=== PATIENT | female | born 1990 | race Caucasian/White ===

== ENCOUNTER 2019-06-16 16:50 | Emergency (ER) | payer OTHER, MEDICAID, SELFPAY ==
[2019-06-16 16:58] VITALS: BP 110/72; PULSE 79; RESP 16; TEMP 36.9; O2SAT 100
[2019-06-16 17:27] LABS: Bacteria Urine Few (2-10); Culture Indicated Urine Specimen Cultured; Mucus Urine 2+ (Negative); RBC Urine 30-100/HPF (0-5/HPF); Squamous Epithelial Cell Urine 0-1 /HPF (0-5/HPF); WBC Urine 5-10/HPF (0-5/HPF)
[2019-06-16 17:30] LABS: Add Manual Diff / Slide Review NO; Basophils Absolute Auto 0 /uL (0-100); Basophils Percent Auto 0.2 % (0-2); Eosinophils Absolute Auto 100 /uL (0-450); Eosinophils Percent Auto 0.5 % (2-4); Hematocrit 35.8 % (36-46); Hemoglobin 12.4 g/dL (12.0-16.0); Lymphocytes Absolute Auto 1600 /uL (1100-4500); Lymphocytes Percent Auto 16.2 % (25-40); Mean Corpuscular HGB Conc 34.5 % (30-36); Mean Corpuscular Volume 95.8 fL (80-100); Monocytes Absolute Auto 600 /uL (0-900); Monocytes Percent Auto 5.8 % (3-14); Neutrophils Absolute Auto 7700 /uL (1500-7000); Neutrophils Percent Auto 77.3 % (50-75); Platelet Count 203 X10^3/uL (150-400); Red Blood Cell Count 3.74 X10^6/uL (4.0-5.2); Red Cell Distribution Width 12.6 % (11.6-14.8)
[2019-06-16 17:38] LABS: Alanine Aminotransferase 36 IU/L (9-52); Albumin 4.4 g/dL (3.5-5.0); Albumin Globulin Ratio 1.4 (1.0-2.8); Alkaline Phosphatase 45 U/L (38-126); Aspartate Aminotransferase 35 IU/L (14-36); Bilirubin Total 0.6 mg/dL (0.2-1.3); Blood Urea Nitrogen 4 mg/dL (7-17); Calcium 10.1 mg/dL (8.4-10.2); Carbon Dioxide 25 mmol/L (22-32); Chloride 102 mmol/L (98-107); Estimated Glomerular Filt Rate > 60.0 mL/min (>60); Globulin 3.1 g/dL (1.7-4.1); Glucose 88 mg/dL (70-100); HEMOLYSIS < 15 (0-50); Potassium 3.5 mmol/L (3.4-5.1); Sodium 136 mmol/L (137-145); Total Protein 7.5 g/dL (6.3-8.2)
--- NOTE | 2019-06-16 17:53 | DI.US.S_ITS ---
PROCEDURE: US OB >= 14 WEEKS FETUS INDICATIONS: POSSIBLE 8 WKS PREG W/BLEEDING AND CRAMPING OUTSIDE/PRIOR DATING DATA: Last menstrual period (LMP): Unknown. LMP-based estimated date of delivery (ELMER): N./A. First dating scan (date and location): 06/16/19. Estimated date of delivery (ELMER) from first dating scan: 12/03/19. TECHNIQUE: Real-time scanning was performed of the fetus, with image documentation and biometric measurements. COMPARISON: None. FINDINGS: General: A single live intrauterine gestation is present. Presentation: Variable. Placenta: Placental position is fundal, without previa. Amniotic fluid index: Not measured. However, there is severe oligohydramnios. heart rate: 153 beats per minute. Maternal cervical canal: Not seen. biometrics: Biparietal diameter: 3.1 cm equals 15 weeks 5 days Head circumference: 11.9 cm equals 15 weeks 6 days Abdominal circumference: 9.7 cm equals 15 weeks 5 days Femur length: 1.9 cm equals 15 weeks 4 days Estimated gestational age from initial scan: not applicable. Composite gestational age from present scan: 15 weeks 5 days Estimated weight and percentile: Not calculated Measurement variability for biometric dating: +/- 7 days from 14 weeks to 15 weeks 6 days gestation, +/- 10 days from 16 weeks to 21 weeks 6 days gestation, +/- 2 weeks from 22 weeks to 27 weeks 6 days gestation, +/- 3 weeks for 28 weeks gestation or later. weight reference: 4500 g or EFW >90/95% is considered macrosomia or large for gestational age. EFW <10% is small for gestational age. EFW 5% or less is considered intra-uterine growth restriction. Anatomic survey: Anatomic survey was not performed. Multiple uterine fibroids are seen. The which measure up to 2.7 centimeters. IMPRESSION: A single live intrauterine is seen. There is severe oligohydramnios. Note: Case discussed by telephone with Dr. Earl at 7:23 PM on June 16, 2019, who will discuss the case with the JEWELRY ENAMELER waste minimization technician. Dictated by: Ramsey Stroud M.D. on 06/16/2019 at 19:18 Approved by: Ramsey Stroud M.D. on 06/16/2019 at 19:31
[2019-06-16 18:20] LABS: HCG Quantitative /Beta subunit 13937 mIU/mL
--- NOTE | 2019-06-16 18:54 | ED_ITS ---
HPI - General Adult General Chief complaint: OB/Uterine Contractions Stated complaint: NOT SURE HOW FAR BLEEDING HEAVY Time Seen by Provider: 06/16/19 18:53 Source: patient Mode of arrival: Ambulatory Limitations: no limitations History of Present Illness HPI narrative: Patient is a 28-year-old otherwise healthy female. She states this pregnancies either her 5th or 6th . She has no children at home. She has no care up to this point with this . She states that her last menstrual cycle was 2 months ago she feels that she is somewhere around 2 months gestational age. Has had 2 prior elective abortions. First 1 being instrumentation with another 1 being a medical. It the other pregnancies have ended in a spontaneous abortions. States this has been uncomplicated up to this point. States that today she was sitting on the couch when she had a sudden loss of fluid. She states that it was like a very large urination however was coming from her vagina. She then started having cramping and ?a lot? of vaginal bleeding. She states that currently the bleeding has improved/resolved however she is still having cramping. Related Data Previous Rx's Medication Instructions Recorded amoxicillin-pot clavulanate 1 tab PO BID #14 tab 06/16/19 [Augmentin] Allergies Allergy/AdvReac Type Severity Reaction Status Date / Time tramadol Allergy Rash Verified 06/16/19 16:57 Review of Systems Constitutional Constitutional: Denies fever(s) and Denies headache(s) ENT Ears, Nose, Mouth, and Throat: Denies headache(s) Cardiovascular Cardiovascular: Denies chest pain and Denies dyspnea Respiratory Respiratory: Denies dyspnea Gastrointestinal Gastrointestinal: Denies change in stool character, Reports cramping, Denies diarrhea, Denies nausea and Denies vomiting Comments: Abdominal cramping Genitourinary Genitourinary: Denies dysuria Comments: Vaginal bleeding with loss of fluid Musculoskeletal Musculoskeletal: Denies myalgias and Denies arthralgias Integumentary/Breasts Skin/Breast: Denies lesions and Denies rash Neurologic Neurologic: Denies behavioral changes and Denies headache(s) Psychiatric Psychiatric: Denies behavioral changes Hematologic/Lymphatic Hematologic/Lymphatic: Denies easy bleeding and Denies easy bruising [facility] Medical History [place] teeth extracted (Acute) Surgical History (Updated 06/16/19 @ 21:49 by Chari Reyna MD) H/O dilation and curettage (Acute) Social History Smoking Status: Current every day smoker Social History Smoking Status: Current every day smoker Exam Initial Vital Signs Initial Vital Signs: Vital Signs Temperature 98.5 F 06/16/19 16:58 Pulse Rate 79 06/16/19 16:58 Respiratory Rate 16 06/16/19 16:58 Blood Pressure 110/72 06/16/19 16:58 Pulse Oximetry 100 06/16/19 16:58 Const General: cooperative, well developed and well groomed Orientation: alert, awake and oriented x3 HENMT Head: normal to inspection and normocephalic Resp Effort & Inspection: normal respiratory effort Cardio Rate: regular rate GI Inspection: non-distended Palpation: soft Skin Lesions: no lesions Rashes: no rashes Neuro General: alert and awake Cognition: normal cognition Speech: speech normal Extrem General: normal to inspection and capillary refill normal Psych Appearance: grossly normal and well kempt Course Orders Ordered: ED Orders 06/16/19 17:13 ABO RH Type Stat Complete Blood Count AUTO DIFF Stat Comprehensive Metabolic Panel Stat HCG Quantitative Stat 06/16/19 17:20 Urine Culture Stat Urine Microscopic Stat 06/16/19 17:53 US OB >= 14 weeks Fetus Stat Vital Signs Vital signs: Vital Signs - 8 hr 06/16/19 16:58 06/16/19 19:28 06/16/19 19:56 Temperature 98.5 F Pulse Rate 79 92 H 88 Respiratory Rate 16 18 14 Blood Pressure 110/72 121/72 Blood Pressure [Right Arm] 118/78 Pulse Oximetry 100 100 100 Medical Decision Making Lab Data Lab results reviewed: Yes I reviewed the patient's lab results. Result diagrams: 06/16/19 17:13 06/16/19 17:13 Labs: Lab Results 06/16/19 06/16/19 06/16/19 Range/Units 17:13 17:13 17:13 WBC 10.0 (4.5-11.0) X10^3/uL RBC 3.74 L (4.0-5.2) X10^6/uL Hgb 12.4 (12.0-16.0) g/dL Hct 35.8 L (36-46) % MCV 95.8 (80-100) fL MCH 33.0 (26-34) PG MCHC 34.5 (30-36) % RDW 12.6 (11.6-14.8) % Plt Count 203 (150-400) X10^3/uL Neut % (Auto) 77.3 H (50-75) % Lymph % (Auto) 16.2 L (25-40) % [place] % (Auto) 5.8 (3-14) % Eos % (Auto) 0.5 L (2-4) % Baso % (Auto) 0.2 (0-2) % Neut # (Auto) 7700 H (2639-5041) /uL Lymph # (Auto) 1600 (7310-9352) /uL [place] # (Auto) 600 (0-900) /uL Eos # (Auto) 100 (0-450) /uL Baso # (Auto) 0 (0-100) /uL Sodium 136 L (137-145) mmol/L Potassium 3.5 (3.4-5.1) mmol/L Chloride 102 (98-107) mmol/L Carbon Dioxide 25 (22-32) mmol/L BUN 4 L (7-17) mg/dL Creatinine 0.50 L (0.52-1.04) mg/dL Estimated GFR > 60.0 (>60) mL/min BUN/Creatinine Ratio 8.0 (6-22) Glucose 88 (70-100) mg/dL Calcium 10.1 (8.4-10.2) mg/dL Total Bilirubin 0.6 (0.2-1.3) mg/dL AST 35 (14-36) IU/L ALT 36 (9-52) IU/L Alkaline Phosphatase 45 (38-126) U/L Total Protein 7.5 (6.3-8.2) g/dL Albumin 4.4 (3.5-5.0) g/dL Globulin 3.1 (1.7-4.1) g/dL Albumin/Globulin Ratio 1.4 (1.0-2.8) HCG, Quant 47613 mIU/mL Urine RBC (0-5/HPF) Urine WBC (0-5/HPF) Ur Squamous Epith Cells (0-5/HPF) Urine Bacteria (None) Urine Mucus (Negative) Ur Culture Indicated? Blood Type O Positive 06/16/19 Range/Units 17:20 WBC (4.5-11.0) X10^3/uL RBC (4.0-5.2) X10^6/uL Hgb (12.0-16.0) g/dL Hct (36-46) % MCV (80-100) fL MCH (26-34) PG MCHC (30-36) % RDW (11.6-14.8) % Plt Count (150-400) X10^3/uL Neut % (Auto) (50-75) % Lymph % (Auto) (25-40) % [place] % (Auto) (3-14) % Eos % (Auto) (2-4) % Baso % (Auto) (0-2) % Neut # (Auto) (8158-8664) /uL Lymph # (Auto) (8884-4197) /uL [place] # (Auto) (0-900) /uL Eos # (Auto) (0-450) /uL Baso # (Auto) (0-100) /uL Sodium (137-145) mmol/L Potassium (3.4-5.1) mmol/L Chloride (98-107) mmol/L Carbon Dioxide (22-32) mmol/L BUN (7-17) mg/dL Creatinine (0.52-1.04) mg/dL Estimated GFR (>60) mL/min BUN/Creatinine Ratio (6-22) Glucose (70-100) mg/dL Calcium (8.4-10.2) mg/dL Total Bilirubin (0.2-1.3) mg/dL AST (14-36) IU/L ALT (9-52) IU/L Alkaline Phosphatase (38-126) U/L Total Protein (6.3-8.2) g/dL Albumin (3.5-5.0) g/dL Globulin (1.7-4.1) g/dL Albumin/Globulin Ratio (1.0-2.8) HCG, Quant mIU/mL Urine RBC 30-100/hpf H (0-5/HPF) Urine WBC 5-10/hpf H (0-5/HPF) Ur Squamous Epith Cells 0-1 /hpf (0-5/HPF) Urine Bacteria Few (2-10) H (None) Urine Mucus 2+ H (Negative) Ur Culture Indicated? Specimen cultured Blood Type Urine Dip Bedside Urine Glucose Negative Bedside Urine Bilirubin + 1 Bedside Urine Ketone ++ 40 Urine Specific [place] 1.025 Bedside Urine Occult Blood +++ Bedside Urine pH 6.0 Bedside Urine Protein + 30 Bedside Urine Urobilinogen +/- 1mg Bedside Urine Nitrite + Positive Bedside Urine Leukocytes + 70 Esterase Point of care testing: Urine Dip Bedside Urine Glucose Negative Bedside Urine Bilirubin + 1 Bedside Urine Ketone ++ 40 Urine Specific [place] 1.025 Bedside Urine Occult Blood +++ Bedside Urine pH 6.0 Bedside Urine Protein + 30 Bedside Urine Urobilinogen +/- 1mg Bedside Urine Nitrite + Positive Bedside Urine Leukocytes + 70 Esterase Imaging Data US - abdomen: Radiologist's impression: [address] [address] Ultrasound Report Signed Patient: Michelle Herbert MMR#: [id number] : 1990Acct:[id number] Age/Sex: 28 / FDate of Service: 06/16/19 Loc: ED Accession Number: [id number] Procedure: US OB >= 14 weeks Fetus Ordering Provider: Harshil Earl D.O. PROCEDURE: US OB >= 14 WEEKS FETUS INDICATIONS: POSSIBLE 8 WKS PREG W/BLEEDING AND CRAMPING OUTSIDE/PRIOR DATING DATA: Last menstrual period (LMP): Unknown. LMP-based estimated date of delivery (ELMER): N./A. First dating scan (date and location): 06/16/19. Estimated date of delivery (ELMER) from first dating scan: 12/03/19. TECHNIQUE: Real-time scanning was performed of the fetus, with image documentation and biometric measurements. COMPARISON: None. FINDINGS: General: A single live intrauterine gestation is present. Presentation: Variable. Placenta: Placental position is fundal, without previa. Amniotic fluid index: Not measured. However, there is severe oligohydramnios. heart rate: 153 beats per minute. Maternal cervical canal: Not seen. biometrics: Biparietal diameter: 3.1 cm equals 15 weeks 5 days Head circumference: 11.9 cm equals 15 weeks 6 days Abdominal circumference: 9.7 cm equals 15 weeks 5 days Femur length: 1.9 cm equals 15 weeks 4 days Estimated gestational age from initial scan: not applicable. Composite gestational age from present scan: 15 weeks 5 days Estimated weight and percentile: Not calculated Measurement variability for biometric dating: +/- 7 days from 14 weeks to 15 weeks 6 days gestation, +/- 10 days from 16 weeks to 21 weeks 6 days gestation, +/- 2 weeks from 22 weeks to 27 weeks 6 days gestation, +/- 3 weeks for 28 weeks gestation or later. weight reference: 4500 g or EFW >90/95% is considered macrosomia or large for gestational age. EFW <10% is small for gestational age. EFW 5% or less is considered intra-uterine growth restriction. Anatomic survey: Anatomic survey was not performed. Multiple uterine fibroids are seen. The which measure up to 2.7 centimeters. IMPRESSION: A single live intrauterine is seen. There is severe oligohydramnios. Note: Case discussed by telephone with Dr. Earl at 7:23 PM on June 16, 2019, who will discuss the case with the BIOLOGICAL PLANT OPERATOR production controller. Dictated by: Ramsey Stroud M.D. on 06/16/2019 at 19:18 Approved by: Ramsey Stroud M.D. on 06/16/2019 at 19:31 MDM Narrative Medical decision making narrative: Rh positive. Ultrasound does show single live intrauterine however with oligohydramnios. Given the patient's history and physical exam hours concern for premature rupture of membranes. I did discuss the case with Dr. Reyna with tin tie machine operator automatic who recommended that we send the patient to the labor and delivery department. I did discuss the ultrasound results with the patient and what our concerns were. She is currently stable. She was discharged from the emergency department and sent to L&D. Discharge Plan Departure Patient Disposition: Home Clinical Impression: Threatened miscarriage Discharge Date/Time: 06/16/19 19:57 Instructions: DI for Threatened Activity Restrictions/Additional Instructions: I spoke with Dr Reyna who is our OB provider production controller who recommended that we send you over to the L&D department for further evaluation. Prescriptions: No Action amoxicillin-pot clavulanate [Augmentin] 875-125 mg tablet 1 tab PO BID Qty: 14 RF: 0
[2019-06-16 19:28] VITALS: BP 118/78; PULSE 92; RESP 18; O2SAT 100
--- NOTE | 2019-06-16 19:54 | PC.NURSE ---
Per THO, pt to go to LnD for treatment under Dr. You. No further treatment provided in ED. IV to be placed in LnD.
[2019-06-16 19:56] VITALS: BP 121/72; PULSE 88; RESP 14; O2SAT 100
== END 2019-06-16 19:57 | disposition home or self-care (01) ==
PROVIDERS: Emergency Medicine; Emergency Provider Emergency Medicine
DX: O20.0 Threatened abortion (principal)
CPT/HCPCS: 36415; 76811; 80053; 81003; 81015; 84702; 85025; 86850; 86900; 86901; 87086; 99283; 99284; G0378; G0379

== ENCOUNTER 2019-06-16 19:59 | Observation (INO) | payer OTHER, MEDICAID, SELFPAY ==
--- NOTE | 2019-06-16 21:47 | PM.OBTRLD ---
Visit Information Visit Information Date of evaluation: 06/16/19 On-call OB Provider: Chari Reyna Reason for Evaluation: Yes rupture of membranes Comments/Additional reasons for admission: 16 weeks gestation [facility] Medical History (Updated 06/16/19 @ 21:49 by Chari Reyna MD) [place] teeth extracted (Acute) Surgical History (Updated 06/16/19 @ 21:49 by Chari Reyna MD) H/O dilation and curettage (Acute) Social History Smoking Status: Current every day smoker Social History Smoking Status: Current every day smoker Review of Systems Review of Systems ROS Unobtainable: All systems reviewed & are unremarkable except as noted in HPI and below Constitutional Constitutional: Denies chills, Denies fever(s) and Denies night sweats Genitourinary Genitourinary: Denies vaginal odor Diagnosis, Plan/Disposition Final Diagnosis (1) H/O dilation and curettage: Current Visit: Yes Status: Acute
[2019-06-16] MEDS: AMOXICILLIN/CLAV 875/125 MG 1 TAB PO (22:23)
== END 2019-06-16 23:01 | disposition home or self-care (01) ==
PROVIDERS: Admitting Provider Obstetrics & Gynecology; Visit Provider Obstetrics & Gynecology
DX: O20.0 Threatened abortion (principal)
CPT/HCPCS: 86850; 86900; 86901; G0378; G0379

== ENCOUNTER 2019-06-17 09:08 | Emergency (ER) | payer OTHER, MEDICAID, SELFPAY ==
[2019-06-17 09:00] VITALS: BP 108/77; PULSE 106; RESP 20; O2SAT 98
[2019-06-17 09:01] VITALS: BP 116/79; PULSE 85; RESP 18; TEMP 37.1; O2SAT 98; BMI 23.3
--- NOTE | 2019-06-17 09:11 | ED.PREGNANCY ---
HPI - General Chief complaint: OB/Uterine Contractions Stated complaint: stillbirth Time Seen by Provider: 06/17/19 09:11 Source: patient and EMS Mode of arrival: EMS History of Present Illness HPI Narrative: 28-year-old female smoker G5 (or 6) P0 at 15 weeks presents by EMS after stillbirth at home. There has been intense contractions and heavy bleeding, baby still attached to umbilical cord and placenta is yet on delivered. Patient has nausea, pain as a bit dizzy and lightheaded. Patient was seen here yesterday and had an ultrasound showing severe oligohydramnios and was sent to labor and delivery, please see their note for details. She was discharged home, apparently against the wishes of Ob and returns under the above-stated conditions. She has been NPO since yesterday morning except for some water last evening. She denies any fever or chills. MD Complaint: vaginal bleeding and contractions Onset (ago): hour(s) Pain Consistency: intermittent Location: pelvis Severity: moderate Quality: Aching Radiation: pelvis Relieving factors: none Exacerbating factors: none Associated symptoms: nausea and vaginal bleeding Vaginal bleeding: heavy and clots OB History - Previous Pregnancies: miscarriage care: none Related Data Previous Rx's Medication Instructions Recorded amoxicillin-pot clavulanate 1 tab PO BID #14 tab 06/16/19 [Augmentin] Allergies Allergy/AdvReac Type Severity Reaction Status Date / Time tramadol Allergy Rash Verified 06/16/19 16:57 Review of Systems Constitutional Constitutional: Denies chills, Denies fatigue, Denies fever(s), Denies frequent falls, Denies lethargy and Denies weakness Eyes Eyes: Denies change in vision, Denies eye discharge, Denies irritation and Denies loss of vision ENT Ears, Nose, Mouth, and Throat: Denies change in voice, Denies dizziness, Denies neck pain, Denies sore throat and Denies throat swelling Cardiovascular Cardiovascular: Denies chest pain, Denies irregular heart rhythm, Denies lightheadedness, Denies palpitations, Denies dyspnea, Denies dyspnea on exertion and Denies orthopnea Respiratory Respiratory: Denies cough, Denies dyspnea, Denies dyspnea on exertion and Denies wheezing Gastrointestinal Gastrointestinal: Denies abdominal pain, Denies change in bowel habits, Denies diarrhea, Denies nausea and Denies vomiting Genitourinary Genitourinary: Reports abnormal vaginal bleeding, Denies hematuria, Denies flank pain, Denies urinary incontinence and Denies urinary urgency Musculoskeletal Musculoskeletal: Denies back pain, Denies muscle weakness, Denies neck pain, Denies numbness and Denies tingling Integumentary/Breasts Skin/Breast: Denies pruritus, Denies erythema, Denies rash and Denies wounds Neurologic Neurologic: Denies behavioral changes, Denies confusion, Denies dizziness, Denies frequent falls, Denies loss of vision, Denies numbness, Denies tingling and Denies weakness Psychiatric Psychiatric: Denies anxiety, Denies behavioral changes, Denies confusion, Denies depression, Denies homicidal ideation and Denies suicidal ideation Endocrine Endocrine: Denies fatigue, Denies flushing and Denies palpitations Hematologic/Lymphatic Hematologic/Lymphatic: Denies easy bruising Allergic/Immunologic Allergic/Immunologic: Denies urticaria, Denies throat swelling and Denies wheezing PMFSH - Past Medical History Medical history: Reports no medical history Surgical history: Reports non-contributory DEEP FAT COOK FRY history: Reports Spontaneous Psychiatric history: Reports no psych history Family History Family history: Reports no significant family history Exam Narrative Exam Narrative: GEN: AOx3 and in mild distress, tearful and unwell EYES: Pupils are equal, round, and reactive to light and accommodation. Extraoccular muscles are intact bilaterally. There is no subconjunctival hemorrhage or exudate. CHEST: Lungs are clear to auscultation bilaterally and free of wheezes, rales, or rhonchi. Heart rate is regular rhythm, there are no murmurs, clicks, rubs, or gallops. There is no chest wall tenderness. ABD: Abdomen is soft and suprapubic tenderness. There is no guarding or rebound. Bowel sounds are normal in all 4 quadrants. There is no mass or organomegaly. PELVIC: fetus attached to umbilical cord, placenta still intrauterine. Large dark clots, but no obvious active bleeding. EXT: Full painless ROM of all extremities with no loss of sensation or strength. SKIN: Warm, pink, and dry. No erythema or rash Initial Vital Signs Initial Vital Signs: Vital Signs Pulse Rate 106 H 06/17/19 09:00 Respiratory Rate 20 06/17/19 09:00 Blood Pressure 108/77 06/17/19 09:00 Pulse Oximetry 98 06/17/19 09:00 Course Course Course Narrative: call to OB (Maribell), she requests patient be kept NPO and sent to L&D. No need to call OR crew just yet, she is on her way and will see patient. Orders Ordered: ED Orders 06/17/19 09:13 Basic Metabolic Panel Stat Complete Blood Count AUTO DIFF Stat HCG Quantitative Stat Type and Screen Stat Discontinued Medications Famotidine (Pepcid) 20 mg in 50 mls @ 200 mls/hr IV NOW ONE Stop: 06/17/19 09:21 Metoclopramide HCl (Reglan) 10 mg IV NOW ONE Stop: 06/17/19 09:08 Vital Signs Vital signs: Vital Signs - 8 hr 06/17/19 09:00 06/17/19 09:01 Temperature 98.7 F Pulse Rate 106 H 85 Respiratory Rate 20 18 Blood Pressure 116/79 Blood Pressure [Right Arm] 108/77 Pulse Oximetry 98 98 MDM - OB/Uterine Contractions Lab Data Result diagrams: 06/17/19 09:13 06/17/19 09:13 Labs: Lab Results 06/17/19 06/17/19 06/17/19 Range/Units 09:13 09:13 09:13 WBC 14.2 H (4.5-11.0) X10^3/uL RBC 3.18 L (4.0-5.2) X10^6/uL Hgb 10.5 L (12.0-16.0) g/dL Hct 29.8 L (36-46) % MCV 93.6 (80-100) fL MCH 33.0 (26-34) PG MCHC 35.2 (30-36) % RDW 12.3 (11.6-14.8) % Plt Count 151 (150-400) X10^3/uL Neut % (Auto) 87.5 H (50-75) % Lymph % (Auto) 6.7 L (25-40) % [place] % (Auto) 5.3 (3-14) % Eos % (Auto) 0.4 L (2-4) % Baso % (Auto) 0.1 (0-2) % Neut # (Auto) 21783 H (7006-0106) /uL Lymph # (Auto) 1000 L (1502-1724) /uL [place] # (Auto) 800 (0-900) /uL Eos # (Auto) 100 (0-450) /uL Baso # (Auto) 0 (0-100) /uL Sodium 135 L (137-145) mmol/L Potassium 3.6 (3.4-5.1) mmol/L Chloride 105 (98-107) mmol/L Carbon Dioxide 19 L (22-32) mmol/L BUN 4 L (7-17) mg/dL Creatinine 0.40 L (0.52-1.04) mg/dL Estimated GFR > 60.0 (>60) mL/min BUN/Creatinine Ratio 10.0 (6-22) Glucose 109 H (70-100) mg/dL Calcium 9.4 (8.4-10.2) mg/dL HCG, Quant 8664.4 mIU/mL Blood Type O Positive Antibody Screen Negative Discharge Plan Departure Patient Disposition: Admitted as Observation Clinical Impression: Abnormal vaginal bleeding, Incomplete miscarriage with blood clot Discharge Date/Time: 06/17/19 09:38
[2019-06-17 09:33] LABS: Add Manual Diff / Slide Review NO; Basophils Absolute Auto 0 /uL (0-100); Basophils Percent Auto 0.1 % (0-2); Eosinophils Absolute Auto 100 /uL (0-450); Eosinophils Percent Auto 0.4 % (2-4); Hematocrit 29.8 % (36-46); Hemoglobin 10.5 g/dL (12.0-16.0); Lymphocytes Absolute Auto 1000 /uL (1100-4500); Lymphocytes Percent Auto 6.7 % (25-40); Mean Corpuscular HGB Conc 35.2 % (30-36); Mean Corpuscular Volume 93.6 fL (80-100); Monocytes Absolute Auto 800 /uL (0-900); Monocytes Percent Auto 5.3 % (3-14); Neutrophils Absolute Auto 12400 /uL (1500-7000); Neutrophils Percent Auto 87.5 % (50-75); Platelet Count 151 X10^3/uL (150-400); Red Blood Cell Count 3.18 X10^6/uL (4.0-5.2); Red Cell Distribution Width 12.3 % (11.6-14.8); White Blood Cell Count 14.2 X10^3/uL (4.5-11.0)
--- NOTE | 2019-06-17 09:34 | PC.NURSE ---
pt states, she was told, amoxcillin was given last night, not cytotec. that she wasnt aware of cytotec, she is supposed to have D&E. states, she broke her water yesterday at 230pm, seen and evaluated yesterday by dr car and Dr Reyna. then with severe abdominal cramping and vaginal bleeding onset at 430 am today, then at 0730, went to the bathroom, still in the toilet, called er, wondering if she can just cut the cord, advised to call 911 for transport to the hospital.
[2019-06-17 09:38] LABS: Blood Urea Nitrogen 4 mg/dL (7-17); Calcium 9.4 mg/dL (8.4-10.2); Carbon Dioxide 19 mmol/L (22-32); Chloride 105 mmol/L (98-107); Estimated Glomerular Filt Rate > 60.0 mL/min (>60); Glucose 109 mg/dL (70-100); HEMOLYSIS < 15 (0-50); Potassium 3.6 mmol/L (3.4-5.1); Sodium 135 mmol/L (137-145)
[2019-06-17 09:55] LABS: HCG Quantitative /Beta subunit 8664.4 mIU/mL
== END 2019-06-17 09:38 | disposition admitted as inpatient to this hospital (09) ==
LOC: ED 09:26
PROVIDERS: Emergency Provider Emergency Medicine
DX: O03.2 Embolism following incomplete spontaneous abortion (principal)
CPT/HCPCS: 36415; 80048; 84702; 85025; 86850; 86900; 86901; 99282; J0330; J1100; J1885; J2250; J2590; J2704; J3010

== ENCOUNTER 2019-06-17 09:24 | Observation (INO) | payer OTHER, MEDICAID, SELFPAY ==
[2019-06-17] VITALS (11 sets, daily range): BP systolic 92–113; BP diastolic 45–76; PULSE 65–86; RESP 10–24; TEMP 36.2–36.6; O2SAT 99–100
--- NOTE | 2019-06-17 | PATH_ITS ---
[facility] Accession Number: [id number] . 01 Material submitted: . placenta - RETAINED PLACENTA . 02 Diagnosis: Retained Placenta: Phenotypically male fetus (weight 103 grams, 15-16 weeks gestational age as measured by foot length of 2.0 cm). External small and large intestine at gross examination; otherwise, no grossly identifiable abnormalities. Umbilical cord (length 21.5 cm) with three vessels and no evidence of funisitis. Placental tissue fragments (weight 120 grams) with moderate inter- and intravillous fibrin, and with immature chorionic villi. There is no definite evidence of villitis. Chorioamnionitis is present. MRV 06/22/2019 1637 Local . 02 Electronically signed: . Sharon Agarwal MD, Pathologist NPI- [id number] . 01 Gross description: . Received in formalin, labeled retained placenta, are multiple fragments of del castillo-eason spongy membranous hemorrhagic tissue (120 grams, 11.5 x 10.5 x 2.8 cm in aggregate) and an intact phenotypically male fetus weighing 103 grams. The fetus is brown-del castillo and diffusely edematous. The abdomen contains an opening with the small and large intestines developing outside of the body. External examination: Two eyes with fused lids, small anteverted nose with patent nares, intact lip and palate, slightly recessed chin, normally formed ears, no nuchal thickening, no obvious nipple buds, intact vertebral column, five digits on all four extremities with no syndactyly or abnormal creases, and a patent anus. . Gross measurements: [place] to rump length-12.6 cm, crown to heel length-17.8 cm, foot length-2.0 cm, hand length-1.8 cm, head circumference-11.5 cm, chest circumference-10.3 cm, abdominal circumference-7.7 cm, inner canthal distance-1.3 cm, outer canthal distance-2.8 cm, and attached umbilical cord: length-21.5 cm, diameter-0.5 x 0.3 cm. The umbilical cord appears to have two vessels. . Internal examination: The organs appear to be developing normally. The calvarial bones are not disarticultated. No other pathological abnormalities are identified. Section code: (A1) vendor representatives tissue; (A2) umbilical cord, vendor representatives serial sections; (A3, A4) vendor representatives tissue fragments. ([id number]) /MRV 06/21/2019 1354 Local . 02 Pathologist provided ICD-10: O43.90, O73.1 . 02 CPT . 745370 Performed at: 01 [facility] [address] [id number] MD Behzad Carnes MD Phone: [phone] Performed at: 02 [facility] [address] [place] [id number] MD Annette Duran MD Phone: [phone]
--- NOTE | 2019-06-17 10:10 | PM.PREOP ---
Pre-operative Note Interval Note History & Physical reviewed/Exam performed by Physician: Yes Changes to H&P: No
[2019-06-17] MEDS: ONDANSETRON 4 MG/2 ML INJ IV (10:17)
[2019-06-17] MEDS: fentaNYL 100 MCG/2 ML INJ 50 MCG IV ×2 (10:17→11:10)
[2019-06-17] MEDS: LACTATED RINGERS 1,000 ML 42 ML IV (10:17)
[2019-06-17] MEDS: CEFOTETAN 2 GM/50 ML PIGGYBACK IV (10:30)
--- NOTE | 2019-06-17 11:11 | SUR.OPER ---
Lithotomy on padded OR bed, head on pillow, arms secured on padded arm boards at <90 degrees abduction. Legs secured in padded yellow fins stirrups. Lithotomy on padded OR bed, head on pillow, arms secured on padded arm boards at <90 degrees abduction. Legs secured in padded yellow fins stirrups.
[2019-06-17] MEDS: OXYCODONE/ACETAMINOPHEN 5/325 TABLET 1 TAB PO (11:20)
[2019-06-17] MEDS: OXYCODONE/ACETAMINOPHEN 5/325 TABLET 2 TAB PO (12:34)
--- NOTE | 2019-06-17 12:38 | PC.NURSE ---
Day shift: Pt on unit at approx 1215 from PACU. A&Ox3. Reports ABD pain of 2/10. Oriented to room and call light. SO at bedside for support. PERSONAL HEALTH COACH intact. Pad in place. Pt agrees to not get OOB w/o help from staff.
--- NOTE | 2019-06-17 13:15 | P.HP_ITS ---
History of Present Illness History of Present Illness Date Patient Seen: 06/17/19 Time Patient Seen: 10:00 Chief complaint: Narrative: Patient is a 28-year-old 6 para 0 who passed a fetus measuring 16 weeks at 4:30 a.m. this morning. The fetus remains attached by the umbilical cord to the placenta. The placenta remains in the uterus. Patient presented last night to the emergency department after spontaneous rupture membranes at 2:30 p.m. yesterday afternoon. She refused Cytotec induction of labor. She was given 1 dose of oral antibiotics and was to follow up today either at the [facility] or at [facility] for a D&E. The patient began having cramping in the middle of the night and passed the fetus while sitting on the toilet. Patient History Surgical History (Updated 06/16/19 @ 21:49 by Chari Reyna MD) H/O dilation and curettage (Acute) Social History Smoking Status: Current every day smoker Family & Social History Tobacco & Substance use: Tobacco type cigarettes Smoking Status Current every day smoker Smoking packs per day 0.5 alcohol intake frequency 3 or more drinks per day Substance Use Type does not use Meds Home Medications and Allergies Home Medications Medication Instructions Recorded Confirmed Type amoxicillin-pot clavulanate 1 tab PO BID #14 tab 06/16/19 Rx [Augmentin] oxycodone-acetaminophen [Percocet] 1 tab PO Q4-6H PRN #14 tab 06/17/19 Rx Allergies Allergy/AdvReac Type Severity Reaction Status Date / Time tramadol Allergy Rash Verified 06/16/19 16:57 Exam Vital Signs (past 8 hours): - 06/17/19 10:17 06/17/19 11:03 06/17/19 11:08 Temperature 97.2 F L Pulse Rate 84 78 81 Respiratory Rate 24 12 13 Blood Pressure 113/76 112/70 107/65 Pulse Oximetry 99 100 100 06/17/19 11:13 06/17/19 11:20 06/17/19 11:30 Temperature Pulse Rate 85 83 86 Respiratory Rate 12 10 L 14 Blood Pressure 102/70 92/47 L 95/61 Pulse Oximetry 100 100 100 06/17/19 11:40 06/17/19 12:02 06/17/19 12:23 Temperature 97.8 F Pulse Rate 83 65 Respiratory Rate 14 16 Blood Pressure 107/71 97/45 L 97/45 L Pulse Oximetry 100 100 06/17/19 12:30 Temperature 97.9 F Pulse Rate 74 Respiratory Rate 16 Blood Pressure 98/49 L Pulse Oximetry 99 Oxygen Delivery Method Room Air Narrative Exam Narrative: Generally: Patient is sitting up in bed, in moderate distress secondary to cramping Lungs: Clear to auscultation bilaterally Cardiovascular: Regular rate and rhythm Abdomen: Slightly tender to palpation. Perineum: Fetus attached by umbilical cord to the placenta. Moderate amount of blood on the Chux. Assessment & Plan Assessment & Plan narrative: Assessment: 28-year-old 6 para 0 status post spontaneous vaginal delivery of a 16 week fetus. Retained placenta Plan: D&C with extraction of placenta The risks, benefits, and alternatives to the procedure were explained to the patient. The risks including bleeding, infection, and uterine perforation. She understands these risks and agrees to proceed. A full par Q was held and consent form was signed. Time Spent With Patient Time with patient: 15-24 minutes
--- NOTE | 2019-06-17 13:18 | PM.GYNOP.1 ---
Operative Date/Time/Diagnoses Date of procedure: 06/17/19 Time of procedure: 13:18 Pre-op diagnosis: Retained placenta after delivery of 16 week fetus Post-op diagnosis: same Procedure & Clinicians Procedure: Procedures Operation Date: 06/17/19 10:45 Actual Procedures Side Surgeon p Dilation and Curettage, REMOVAL OF RETAINED PLACENTA Not Applicable Chari Reyna MD Indications: Retained placenta after delivery of 16 week fetus Surgeon: Chari Reyna Anesthesia Type: General Operative Notes Findings: 16 week fetus with what appears to be an and phallus seal or gastroschisis Uterus measuring 12 weeks Placenta adherent to the uterine wall and coming through the cervical os Closure Type: not applicable Specimen(s): uterine contents (Fetus and placenta) Applied: catheter Estimated blood loss (mL): 100 Blood products transfused: none Procedure in detail: After informed consent was obtained, the patient was taken to the operating room where she was placed in the dorsal supine position. After adequate general endotracheal anesthesia was achieved, she was placed in the dorsal lithotomy position, and prepped and draped in the usual sterile fashion around the fetus which was still attached by the umbilical cord. The cord was clamped and cut. The fetus was handed off for specimen. The vagina was cleared of all clots with moistened sponge stick. A single-tooth tenaculum was placed on the anterior lip of the cervix. Using a ring forceps, the placenta was teased out of the uterus. A # 12 curved plastic curette passed easily into the endometrial cavity. Several passes with suction revealed membranes and clots. Ring forceps were used to remove pieces of membrane adherent to the uterine wall. Several more passes with suction revealed blood only. Gentle sharp curettage was performed yielding only blood. The instruments were removed from the uterus. The single-tooth tenaculum was removed from the anterior lip of the cervix. The bivalve speculum was removed from the vagina. Sponge, lap, and instrument counts were correct x2. The patient tolerated the procedure well, and was taken to PACU in stable condition. Complications: none Post-operative Condition: stable Disposition: PACU Plan for aftercare: To acute care after recovery
[2019-06-17] MEDS: NICOTINE 14 PATCH 14 MG TOP (13:29)
--- NOTE | 2019-06-17 15:56 | PC.NURSE ---
Pt awake,denies any dizziness Requesting to be discharged. HL D/C intact. Home instructions given w/apparent understanding. Escortedby staff via W/C to waiting car. Discharged n stable condition.
== END 2019-06-17 15:50 | disposition home or self-care (01) ==
LOC: LABOR 11:25 → AC 11:35
PROVIDERS: Admitting Provider Obstetrics & Gynecology; Visit Provider Obstetrics & Gynecology
PROC: (CPT 58120; principal; 2019-06-17 10:45)
DX: O03.4 Incomplete spontaneous abortion without complication (principal); O42.012 Preterm premature rupture of membranes, onset of labor within 24 hours of rupture, second trimester; Z3A.16 16 weeks gestation of pregnancy; Z37.1 Single stillbirth; F17.210 Nicotine dependence, cigarettes, uncomplicated
CPT/HCPCS: 59812; 36415; 80048; 84702; 85025; 86850; 86900; 86901; 99282; G0378; G0379; J0330; J1100; J1885; J2250; J2405; J2590; J2704; J3010

== ENCOUNTER 2019-09-29 13:11 | Observation (INO) | payer OTHER, MEDICAID, SELFPAY ==
[2019-09-29 13:21] VITALS: BP 118/86; PULSE 94; RESP 18; TEMP 36.7; O2SAT 100; BMI 24.2
[2019-09-29 13:46] LABS: Add Manual Diff / Slide Review NO; Basophils Absolute Auto 0 /uL (0-100); Basophils Percent Auto 0.4 % (0-2); Eosinophils Absolute Auto 0 /uL (0-450); Eosinophils Percent Auto 0.5 % (2-4); Hematocrit 38.5 % (36-46); Hemoglobin 13.1 g/dL (12.0-16.0); Lymphocytes Absolute Auto 600 /uL (1100-4500); Lymphocytes Percent Auto 9.3 % (25-40); Mean Corpuscular HGB Conc 34.1 % (30-36); Mean Corpuscular Volume 93.6 fL (80-100); Monocytes Absolute Auto 600 /uL (0-900); Monocytes Percent Auto 8.7 % (3-14); Neutrophils Absolute Auto 5500 /uL (1500-7000); Neutrophils Percent Auto 81.1 % (50-75); Platelet Count 214 X10^3/uL (150-400); Red Blood Cell Count 4.11 X10^6/uL (4.0-5.2); Red Cell Distribution Width 15.1 % (11.6-14.8); White Blood Cell Count 6.8 X10^3/uL (4.5-11.0)
[2019-09-29 14:01] LABS: Alanine Aminotransferase 216 IU/L (<35); Albumin Globulin Ratio 1.7 (1.0-2.8); Alkaline Phosphatase 104 U/L (38-126); Aspartate Aminotransferase 281 IU/L (14-36); BUN Creatinine Ratio 16.7 (6-22); Bilirubin Total 1.2 mg/dL (0.2-1.3); Blood Urea Nitrogen 10 mg/dL (7-17); Calcium 9.7 mg/dL (8.4-10.2); Carbon Dioxide 26 mmol/L (22-32); Chloride 100 mmol/L (98-107); Estimated Glomerular Filt Rate > 60.0 mL/min (>60); Glucose 91 mg/dL (70-100); HEMOLYSIS < 15 (0-50); Potassium 4.1 mmol/L (3.4-5.1); Sodium 138 mmol/L (137-145)
[2019-09-29 14:12] LABS: Lipase 3395 U/L (23-300)
--- NOTE | 2019-09-29 16:31 | ED.ABDPAIN ---
HPI - Abdominal Pain General Chief Complaint: Abdominal Pain Stated Complaint: abdominal pain,shortness of breath Time Seen by Provider: 09/29/19 16:31 Source: patient Mode of arrival: Ambulatory Limitations: no limitations History of Present Illness HPI narrative: This is a 29-year-old female comes in with complaint of abdominal pain. Patient states can epigastric with a little bit of back pain. She also has some lower abdominal discomfort. She is painful to take a deep breath she hasn't had fevers. She hasn't had any nausea or vomiting. She has not any frequency, dysuria or urgency. She states that she noticed symptoms starting yesterday but more mild. And then today were increasing. She states she has had a little bit of mild symptoms 1st thing in the mornings. She denies any medical problems, no prior surgeries other than a D and C after a miscarriage. Patient states she does smoke tobacco she drinks about a 0.5 gal of every 3 days with her significant other but denies any illicit. She states she did have more alcohol than she typically would over the new years ezequiel. Patient does not have a primary care physician. Related Data Home Medications Medication Instructions Recorded Confirmed No Known Home Medications 09/29/19 09/29/19 Allergies Allergy/AdvReac Type Severity Reaction Status Date / Time tramadol Allergy Rash Verified 09/29/19 13:21 Review of Systems Review of Systems ROS Unobtainable: All systems reviewed & are unremarkable except as noted in HPI and below Patient History Surgical History H/O dilation and curettage (Acute) [place] teeth extracted (Acute) Social History Smoking Status: Current every day smoker Smoking Status: Current every day smoker alcohol intake frequency: 3 or more drinks per day Substance Use Type: does not use Exam Narrative Exam Narrative: GENERAL: Alert and oriented x three, well-nourished female in mild HEENT: Head normocephalic, atraumatic, EOMI, pupils reactive, face symmetric, moist mucous membranes NECK: Supple, full range of motion CARDIOVASCULAR: Regular rate and rhythm without murmurs, rubs or gallops. RESPIRATORY: Breath sounds equal bilaterally, no wheezes rales or rhonchi. ABDOMEN: Soft, positive for epigastric and right upper quadrant tenderness with some mild left upper quadrant tenderness. Normoactive bowel sounds all 4 quadrants. No guarding or rebound, rigidity, no mass : No CVA tenderness EXTREMITIES: Normal range of motion, no clubbing or edema. Neurovascularly intact NEUROLOGICAL: Cranial nerves II through XII grossly intact. Moving all extremities SKIN: Warm, dry, no petechiae, no rashes or lesions. Initial Vital Signs Initial Vital Signs: Vital Signs Temperature 98.1 F 09/29/19 13:21 Pulse Rate 94 H 09/29/19 13:21 Respiratory Rate 18 09/29/19 13:21 Blood Pressure 118/86 09/29/19 13:21 Pulse Oximetry 100 09/29/19 13:21 Course Orders Ordered: ED Orders 09/29/19 13:34 Complete Blood Count AUTO DIFF Stat Comprehensive Metabolic Panel Stat Lipase Stat Lipid Panel Stat 09/29/19 16:31 US abdomen complete Stat 09/29/19 17:42 Ictotest Urine Stat Urine Culture Stat Urine Microscopic Stat Discontinued Medications Sodium Chloride (Normal Saline 0.9%) 1,000 mls @ 1,000 mls/hr IV BOLUS ONE Stop: 09/29/19 17:38 Last Infusion: 09/29/19 18:24 Dose: 0 mls/hr Documented by: Admin: 09/29/19 16:46 Dose: 1,000 mls/hr Documented by: VIKTORIA Ketorolac Tromethamine (Toradol) 30 mg IV NOW ONE Stop: 09/29/19 16:40 Last Admin: 09/29/19 16:45 Dose: 30 mg Documented by: [email or web address] Nicotine (Nicoderm) 21 mg TOP NOW ONE Stop: 09/29/19 18:40 Last Admin: 09/29/19 19:00 Dose: 21 mg Documented by: [email or web address] Vital Signs Vital signs: Vital Signs - 8 hr 09/29/19 13:21 09/29/19 16:34 09/29/19 17:04 Temperature 98.1 F Pulse Rate 94 H 95 H 72 Respiratory Rate 18 Blood Pressure 118/86 Blood Pressure [Right Arm] 140/92 H 119/55 L Pulse Oximetry 100 100 100 MDM - Abdominal Pain Lab Data Attestation: I reviewed the patient's lab results. Result diagrams: 09/29/19 13:34 09/29/19 13:34 Labs: Lab Results 09/29/19 09/29/19 09/29/19 Range/Units 13:34 13:34 13:34 WBC 6.8 (4.5-11.0) X10^3/uL RBC 4.11 (4.0-5.2) X10^6/uL Hgb 13.1 (12.0-16.0) g/dL Hct 38.5 (36-46) % MCV 93.6 (80-100) fL MCH 32.0 (26-34) PG MCHC 34.1 (30-36) % RDW 15.1 H (11.6-14.8) % Plt Count 214 (150-400) X10^3/uL Neut % (Auto) 81.1 H (50-75) % Lymph % (Auto) 9.3 L (25-40) % [place] % (Auto) 8.7 (3-14) % Eos % (Auto) 0.5 L (2-4) % Baso % (Auto) 0.4 (0-2) % Neut # (Auto) 5500 (3713-8684) /uL Lymph # (Auto) 600 L (2780-3762) /uL [place] # (Auto) 600 (0-900) /uL Eos # (Auto) 0 (0-450) /uL Baso # (Auto) 0 (0-100) /uL Sodium 138 (137-145) mmol/L Potassium 4.1 (3.4-5.1) mmol/L Chloride 100 (98-107) mmol/L Carbon Dioxide 26 (22-32) mmol/L BUN 10 (7-17) mg/dL Creatinine 0.60 (0.52-1.04) mg/dL Estimated GFR > 60.0 (>60) mL/min BUN/Creatinine Ratio 16.7 (6-22) Glucose 91 (70-100) mg/dL Calcium 9.7 (8.4-10.2) mg/dL Total Bilirubin 1.2 (0.2-1.3) mg/dL AST 281 H (14-36) IU/L ALT 216 H (<35) IU/L Alkaline Phosphatase 104 (38-126) U/L Total Protein 8.0 (6.3-8.2) g/dL Albumin 5.0 (3.5-5.0) g/dL Globulin 3.0 (1.7-4.1) g/dL Albumin/Globulin Ratio 1.7 (1.0-2.8) Triglycerides 103 (35-150) mg/dL Cholesterol 199 (140-199) mg/dL LDL Cholesterol, Calc 111 H (<100) mg/dL HDL Cholesterol 67 H (40-60) mg/dL Lipase 3395 H (23-300) U/L Urine Ictotest (Negative) Urine RBC (0-5/HPF) Urine WBC (0-5/HPF) Ur Squamous Epith Cells (0-5/HPF) Ur Transition Epith Cell (0-5/HPF) Urine Bacteria (None) Urine Mucus (Negative) Ur Culture Indicated? 09/29/19 Range/Units 17:42 WBC (4.5-11.0) X10^3/uL RBC (4.0-5.2) X10^6/uL Hgb (12.0-16.0) g/dL Hct (36-46) % MCV (80-100) fL MCH (26-34) PG MCHC (30-36) % RDW (11.6-14.8) % Plt Count (150-400) X10^3/uL Neut % (Auto) (50-75) % Lymph % (Auto) (25-40) % [place] % (Auto) (3-14) % Eos % (Auto) (2-4) % Baso % (Auto) (0-2) % Neut # (Auto) (5565-0140) /uL Lymph # (Auto) (5565-8411) /uL [place] # (Auto) (0-900) /uL Eos # (Auto) (0-450) /uL Baso # (Auto) (0-100) /uL Sodium (137-145) mmol/L Potassium (3.4-5.1) mmol/L Chloride (98-107) mmol/L Carbon Dioxide (22-32) mmol/L BUN (7-17) mg/dL Creatinine (0.52-1.04) mg/dL Estimated GFR (>60) mL/min BUN/Creatinine Ratio (6-22) Glucose (70-100) mg/dL Calcium (8.4-10.2) mg/dL Total Bilirubin (0.2-1.3) mg/dL AST (14-36) IU/L ALT (<35) IU/L Alkaline Phosphatase (38-126) U/L Total Protein (6.3-8.2) g/dL Albumin (3.5-5.0) g/dL Globulin (1.7-4.1) g/dL Albumin/Globulin Ratio (1.0-2.8) Triglycerides (35-150) mg/dL Cholesterol (140-199) mg/dL LDL Cholesterol, Calc (<100) mg/dL HDL Cholesterol (40-60) mg/dL Lipase (23-300) U/L Urine Ictotest Negative (Negative) Urine RBC 1-5/hpf D (0-5/HPF) Urine WBC 5-10/hpf H (0-5/HPF) Ur Squamous Epith Cells 1-5 /hpf (0-5/HPF) Ur Transition Epith Cell 1-5/hpf (0-5/HPF) Urine Bacteria Few (2-10) H (None) Urine Mucus 2+ H (Negative) Ur Culture Indicated? Specimen cultured Point of care testing: Point of Care Testing Test Results Negative Urine Dip Bedside Urine Glucose Negative Bedside Urine Bilirubin + 1 Bedside Urine Ketone +++ 80 Urine Specific [place] 1.030 Bedside Urine Occult Blood - Negative Bedside Urine pH 6.0 Bedside Urine Protein + 30 Bedside Urine Urobilinogen +/- 1mg Bedside Urine Nitrite - Negative Bedside Urine Leukocytes +/- 15 Esterase Imaging Data US - abdomen: Radiologist's Impression: [place] [address] Ultrasound Report Signed Patient: Michelle Herbert [facility]#: [id number] : 1990Acct:[id number] Age/Sex: te of Service: 09/29/19 Loc: ED Accession Number: [id number] Procedure: US abdomen complete Ordering Provider: Marlene Barron D.O. PROCEDURE: US ABDOMEN COMPLETE INDICATIONS: ABDOMINAL PAIN, PANCREATITIS, ELEVATED AST/ALT TECHNIQUE: Real-time scanning was performed of the abdominal and retroperitoneal organs, with image documentation. COMPARISON: None. FINDINGS: Liver: Liver is echogenic diffusely. No focal hepatic lesion. Gallbladder: Unremarkable. No wall thickening. No sonographic Dee's sign Biliary ducts: Intrahepatic bile ducts are non-dilated. Extrahepatic bile duct caliber measures 4 mm. Normal is 6-7 mm or less in diameter, or 10 mm or less post-cholecystectomy. Pancreas: Pancreatic head is heterogeneous and mildly hyperechoic. There is suggestion of hyperemia raising the possibility of acute pancreatitis. Spleen: Spleen is normal in size and homogeneous in echotexture. A presumed splenule incidentally noted Kidneys: Kidneys are normal in size and echotexture. Right kidney measures 10.5 cm long; left kidney measures 10.1 cm long. No hydronephrosis or nephrolithiasis. No solid masses. There are mildly echogenic pyramids raising possibility of medullary nephrocalcinosis. Aorta: Visualized aorta is normal in caliber at less than 3 cm. distal aorta not well-seen [place]liacs: Obscured by bowel gas. IVC: Intrahepatic inferior vena cava is patent. Miscellaneous: No free abdominal fluid. IMPRESSION: Heterogeneous enlarged hyperemic appearance of the pancreatic head which could represent pancreatitis although correlation with pancreatic enzymes recommended. If there is clinical suspicion of alternative possibility of pancreatic neoplasm, cross-sectional imaging with contrast-enhanced CT could be performed. Coarse echogenic liver suggesting diffuse hepatocellular disease/fatty infiltration. Please correlate with LFTs. Dictated by: Filippo Morel M.D. on 09/29/2019 at 17:48 Approved by: Filippo Morel M.D. on 09/29/2019 at 17:52 MDM Narrative Medical decision making narrative: Patient has a pancreatitis likely alcohol induced, but AST ALT are elevated somewhat at 200 range. Bilirubin in a normal range. Patient received Toradol here in the department. Ultrasound shows changes to pancreas with mildly elevated LFTs. Bilirubin is normal. Alk-phos is not elevated. Urine is negative. Patient has ketones, leukocyte esterase was sent for micro. Spoke with Dr. Mccabe, he requests lipid panel in case patient has elevated triglycerides and may need insulin drip and ICU admission. Patient's labs show fairly normal lipid panel with triglycerides of 103. Plan for observation. Patient has received Toradol, fluids in the department. Discharge Plan Departure Patient Disposition: Admitted as Observation Clinical Impression: Pancreatitis Admit Date/Time: 09/29/19 18:40 Admit Provider: Kranthi Mccabe
[2019-09-29 16:34] VITALS: BP 140/92; PULSE 95; O2SAT 100
--- NOTE | 2019-09-29 16:35 | PC.NURSE ---
drinkgs 1/2 gallon of wine in 3 days. sxs worsen when laying down. had crackers an hour ago.
[2019-09-29] MEDS: KETOROLAC 60 MG/2 ML VIAL 30 MG IV (16:45)
[2019-09-29] MEDS: SODIUM CHLORIDE 0.9% 1,000 ML 1000 ML IV (16:46)
[2019-09-29 17:04] VITALS: BP 119/55; PULSE 72; O2SAT 100
[2019-09-29 18:35] LABS: Cholesterol 199 mg/dL (140-199); HDL Cholesterol 67 mg/dL (40-60); LDL Cholesterol Calculated 111 mg/dL (<100); Triglycerides 103 mg/dL (35-150)
[2019-09-29 18:45] LABS: Ictotest Urine Negative (Negative)
[2019-09-29 18:46] LABS: Bacteria Urine Few (2-10); Culture Indicated Urine Specimen Cultured; Mucus Urine 2+ (Negative); RBC Urine 1-5/HPF (0-5/HPF); Squamous Epithelial Cell Urine 1-5 /HPF (0-5/HPF); Transitional Epi Cells Urine 1-5/HPF (0-5/HPF); WBC Urine 5-10/HPF (0-5/HPF)
[2019-09-29] MEDS: NICOTINE 21 MG PATCH TOP (19:00)
[2019-09-29 19:20] VITALS: BP 130/76; PULSE 67; RESP 14; TEMP 37.1; O2SAT 100
[2019-09-29 20:39] LABS: Magnesium 1.8 mg/dL (1.6-2.3)
--- NOTE | 2019-09-29 21:07 | P.HP_ITS ---
History of Present Illness History of Present Illness Date Patient Seen: 09/29/19 Time Patient Seen: 21:08 Chief complaint: abdominal pain,shortness of breath Narrative: Ms. Michelle Herbert is a 29-year-old female patient who is a current smoker endorses a history of alcoholism who presents to the ER today with abdominal pain. The patient states he started having abdominal pain yesterday at that was progressive today. The patient endorses long history of I alcohol intake reported as 1.5 gal of whiskey every 3 days. She reports she revived more over the holiday which she believes precipitated her symptoms. She has had no previous history of pancreatitis but does endorse intermittent tremulousness which she attributes to her alcohol. She additionally reports that she is a manic-depressive and has has previously used cocaine which she quit. She denies complaints of fevers or chills, has nasal congestion but no sore throat. She denies chest pain or palpitations, shortness of breath cough or wheezing. She has had abdominal pain over the epigastrium with associated back pain. She reports no nausea vomiting and no changes in bowel habits. She denies urinary symptoms of urgency burning or frequency. She reports no disequilibrium gait disturbance or falls. Upon arrival to the ER the patient is afebrile with temperature 98.1?, heart rate of 94, blood pressure 118/86, respirations 18 saturating 100% on room air. On laboratory analysis the patient has a normal white count 6.8, hemoglobin of 13.1 hematocrit of 38.5 platelets of 214. Her electrolytes are within normal limits and she has a normal BUN and creatinine at 10 and 0.6 respectively. Her blood sugar is 91. Her bilirubin is 1.2 with an elevated AST of 281, ALT of 216 and alkaline phosphatase of 104. Her triglycerides are normal 103. Her she has an elevated lipase at 3395. Her urine test is negative. Her urinalysis appears positive for leukocyte esterase on ER screening has been sent for culture. In the ER the patient received 1 L of normal saline Toradol and a Nicoderm patch. The patient was admitted to the medicine service for acute pancreatitis. Patient History Medical History (Updated 09/29/19 @ 21:16 by ISABELLE Stacy) Alcohol dependence (Acute) Current smoker (Acute) Manic depression (Acute) Miscarriage (Acute) Surgical History [place] teeth extracted (Acute) Family & Social History Safety & Behavioral: Feels Safe in Current Yes Environment Tobacco & Substance use: Tobacco type cigarettes Smoking Status Current every day smoker alcohol intake frequency 3 or more drinks per day Substance Use Type does not use Comment: The patient is single but lives with her significant other. 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 Smoking: Currently smoking 1/2 pack per day. Alcohol: 0.5 gal of whiskey every 3 days, more at times. Substance use: Patient source history of cocaine use which he has quit, occasional cannabis use. Advanced directives: Patient is a FULL CODE, she designates Jaime Amber, her significant other to be her surrogate decision maker. Meds Home Medications and Allergies Home Medications Medication Instructions Recorded Confirmed Type No Known Home Medications 09/29/19 09/29/19 History Allergies Allergy/AdvReac Type Severity Reaction Status Date / Time tramadol Allergy Rash Verified 09/29/19 13:21 Exam Vital Signs (past 8 hours): - 09/29/19 13:21 09/29/19 16:34 09/29/19 17:04 Temperature 98.1 F Pulse Rate 94 H 95 H 72 Respiratory Rate 18 Blood Pressure 118/86 Blood Pressure [Right Arm] 140/92 H 119/55 L Pulse Oximetry 100 100 100 09/29/19 19:20 Temperature 98.8 F Pulse Rate 67 Respiratory Rate 14 Blood Pressure 130/76 Blood Pressure [Right Arm] Pulse Oximetry 100 Oxygen Delivery Method Room Air Narrative Exam Narrative: GENERAL APPEARANCE: well developed, well nourished, in no acute distress. HEENT: Normocephalic, PERRLA, conjunctiva clear, EOMs intact without nystagmus, no sinus tenderness to percussion, no rhinorrhea, mucous membranes are moist and pink without lesions or exudate. NECK/THYROID: neck supple, no JVD, no carotid bruit, no thyromegaly, trachea midline. LYMPH NODES: no cervical or supraclavicular lymphadenopathy. SKIN: [place], warm and dry, no visible lesions, rashes, ulcerations or petechiae. HEART: regular rate and rhythm, S1-S2, no murmur, no rubs or gallops, brisk capillary refill, 2+ dorsalis pedis pulses, no edema LUNGS: clear to auscultation bilaterally, no coarseness crackles or wheezing, no cough present CHEST: Symmetrical movement, no accessory muscle use, good tidal volume. ABDOMEN: Soft, no distention, epigastric abdominal tenderness, no guarding or peritoneal signs, no organomegaly, no flank or suprapubic tenderness, active bowel tones. BACK: Normal curvature, nontender to palpation, no CVA tenderness on percussion EXTREMITIES: moves all extremities, strength is 5/5 and symmetrical, no deformities or joint effusions. NEUROLOGIC: AAO x4, no focal neurologic deficits, cranial nerves II-XII grossly intact, sensation intact to light touch, hearing grossly normal to speech. PSYCH: Cooperative, linear thought process, good eye contact, appropriate with stable behavior Objective Labs Result Diagrams: 09/29/19 13:34 09/29/19 13:34 Labs: Laboratory Results - last 24 hr 09/29/19 09/29/19 09/29/19 13:34 13:34 13:34 WBC 6.8 RBC 4.11 Hgb 13.1 Hct 38.5 MCV 93.6 MCH 32.0 MCHC 34.1 RDW 15.1 H Plt Count 214 Neut % (Auto) 81.1 H Lymph % (Auto) 9.3 L [place] % (Auto) 8.7 Eos % (Auto) 0.5 L Baso % (Auto) 0.4 Neut # (Auto) 5500 Lymph # (Auto) 600 L [place] # (Auto) 600 Eos # (Auto) 0 Baso # (Auto) 0 Sodium 138 Potassium 4.1 Chloride 100 Carbon Dioxide 26 BUN 10 Creatinine 0.60 Estimated GFR > 60.0 BUN/Creatinine Ratio 16.7 Glucose 91 Calcium 9.7 Magnesium Total Bilirubin 1.2 AST 281 H ALT 216 H Alkaline Phosphatase 104 Total Protein 8.0 Albumin 5.0 Globulin 3.0 Albumin/Globulin Ratio 1.7 Triglycerides 103 Cholesterol 199 LDL Cholesterol, Calc 111 H HDL Cholesterol 67 H Lipase 3395 H Urine Ictotest Urine RBC Urine WBC Ur Squamous Epith Cells Ur Transition Epith Cell Urine Bacteria Urine Mucus Ur Culture Indicated? 09/29/19 09/29/19 13:34 17:42 WBC RBC Hgb Hct MCV MCH MCHC RDW Plt Count Neut % (Auto) Lymph % (Auto) [place] % (Auto) Eos % (Auto) Baso % (Auto) Neut # (Auto) Lymph # (Auto) [place] # (Auto) Eos # (Auto) Baso # (Auto) Sodium Potassium Chloride Carbon Dioxide BUN Creatinine Estimated GFR BUN/Creatinine Ratio Glucose Calcium Magnesium 1.8 Total Bilirubin AST ALT Alkaline Phosphatase Total Protein Albumin Globulin Albumin/Globulin Ratio Triglycerides Cholesterol LDL Cholesterol, Calc HDL Cholesterol Lipase Urine Ictotest Negative Urine RBC 1-5/hpf D Urine WBC 5-10/hpf H Ur Squamous Epith Cells 1-5 /hpf Ur Transition Epith Cell 1-5/hpf Urine Bacteria Few (2-10) H Urine Mucus 2+ H Ur Culture Indicated? Specimen cultured Assessment & Plan Assessment & Plan narrative: This is a 29-year-old female patient with a history of daily high alcohol intake more over the holiday weekend recently. Patient is developed pancreatitis without a prior history and has elevated AST and ALT with a normal bilirubin. The patient is requesting to be discharged to go home. 1. Acute alcoholic pancreatitis, present on admission, active. -patient has epigastric pain with radiation to the back without nausea vomiting. -patient has a normal white count at 6.8, electrolytes are within normal, blood sugars 91, alkaline phosphatase 104. -lipase is 3395 and Triglycerides are 103. -elevated AST and ALT with normal bilirubin, gallbladder is normal without stones, no ductal dilation, pancreatic head is heterogeneous and hyperechoic consistent with acute pancreatitis. -patient received 1 L of IV fluid in the emergency department. -patient will be water only tonight tonight, clear liquid diet tomorrow, then advance as tolerated. -patient counseled on dietary restrictions. -patient return for any symptoms of increased pain, nausea or vomiting. 2. Alcohol dependence, chronic, present on admission, active. -patient sources history of heavy drinking stating she consumes 0.5 gal of whiskey over 3 days. Last drink yesterday. -patient states she is aware of her problem and is interested seeking appropriate help. -patient with addictive personality that she acknowledges with past substance use of cocaine and occasional cannabis use. -patient does not present withdrawal symptoms at time evaluation. -patient is at risk for withdrawal symptoms. Recommended inpatient or outpatient counseling and medical guidance to quit drinking. -counseled the patient and her significant other that both will need to participate for successful outcome. 3. Alcoholic fatty liver disease, present on admission, active -abdominal ultrasound finds liver echogenicity with diffuse fatty infiltrate liver disease, bilirubin 1.2, AST 10/31/1980, ALT 216 -liver margin palpated is normal. -counseled patient on cessation of alcohol to prevent further liver damage. 4. Current smoker, 1/2 pack per day, present on admission, active. -patient denies shortness of breath cough or wheezing. -Nicoderm topical patch 21 mg applied in the ER. Patient was admitted to the hospital related to the severity of her symptoms and risk of complications and adverse events. Patient was admitted as an outpatient SPECT and length of stay less than 2 midnights. The patient now states her wish to be discharged home and will be accompanied by her significant other. Patient's pain is markedly improved with no nausea vomiting and stable vital signs. Time Spent With Patient Time with patient: Greater than 35 minutes
--- NOTE | 2019-09-29 21:39 | PM.DS.1 ---
History of Present Illness History of Present Illness Chief complaint: abdominal pain,shortness of breath Narrative: Ms. Michelle Herbert is a 29-year-old female patient who is a current smoker endorses a history of alcoholism who presents to the ER today with abdominal pain. The patient states he started having abdominal pain yesterday at that was progressive today. The patient endorses long history of I alcohol intake reported as 1.5 gal of whiskey every 3 days. She reports she revived more over the holiday which she believes precipitated her symptoms. She has had no previous history of pancreatitis but does endorse intermittent tremulousness which she attributes to her alcohol. She additionally reports that she is a manic-depressive and has has previously used cocaine which she quit. She denies complaints of fevers or chills, has nasal congestion but no sore throat. She denies chest pain or palpitations, shortness of breath cough or wheezing. She has had abdominal pain over the epigastrium with associated back pain. She reports no nausea vomiting and no changes in bowel habits. She denies urinary symptoms of urgency burning or frequency. She reports no disequilibrium gait disturbance or falls. Upon arrival to the ER the patient is afebrile with temperature 98.1?, heart rate of 94, blood pressure 118/86, respirations 18 saturating 100% on room air. On laboratory analysis the patient has a normal white count 6.8, hemoglobin of 13.1 hematocrit of 38.5 platelets of 214. Her electrolytes are within normal limits and she has a normal BUN and creatinine at 10 and 0.6 respectively. Her blood sugar is 91. Her bilirubin is 1.2 with an elevated AST of 281, ALT of 216 and alkaline phosphatase of 104. Her triglycerides are normal 103. Her she has an elevated lipase at 3395. Her urine test is negative. Her urinalysis appears positive for leukocyte esterase on ER screening has been sent for culture. In the ER the patient received 1 L of normal saline Toradol and a Nicoderm patch. The patient was admitted to the medicine service for acute pancreatitis. Discharge Providers Provider Date of admission: 09/29/19 18:40 Discharge Date: 09/29/19 Consults: 09/29/19 20:23 Consult to Dietitian, Adult Routine Comment: Reason For Exam: Acute alcoholic pancreatitis 09/29/19 20:29 Consult to Discharge Planning Routine Comment: Discharge provider: ISABELLE Stacy Summary Hospital Course Discharge Diagnosis: 1. Acute alcoholic pancreatitis, present on admission, active. 2. Alcohol dependence, chronic, present on admission, active. 3. Alcoholic fatty liver disease, present on admission, active 4. Current smoker, 1/2 pack per day, present on admission, active. Hospital Course: The patient is admitted to the floor from the emergency department following 1 L of fluid, Toradol 30 mg IV with marked improvement in her disposition. Patient acknowledges she is feeling much better. Patient is requesting to be discharged without further evaluation or treatment and feels she can provide self-care at home. Extensive counseling on alcoholism and smoking cessation. Further discussed diet and dietary management acknowledging restriction sugary substances noting that alcohol is a sugar equivalent. Recommended the patient identify a primary care provider through her insurance for ongoing follow-up and guidance. Additionally recommended inpatient or outpatient alcohol program related to the extent of the patient's alcohol consumption. Status at Discharge Cognitive/behavioral status at discharge: oriented Functional status at discharge: independent ambulation Overall status at discharge: patient is back to baseline Time Spent with Patient Time spent: Less than 30 minutes Time spent discussing smoking cessation with patient: more than 10 minutes Exam Vital Signs (past 8 hours): - 09/29/19 16:34 09/29/19 17:04 09/29/19 19:20 Temperature 98.8 F Pulse Rate 95 H 72 67 Respiratory Rate 14 Blood Pressure 130/76 Blood Pressure [Right Arm] 140/92 H 119/55 L Pulse Oximetry 100 100 100 Oxygen Delivery Method Room Air Narrative Exam Narrative: GENERAL APPEARANCE: well developed, well nourished, in no acute distress. HEENT: Normocephalic, PERRLA, conjunctiva clear, EOMs intact without nystagmus, no sinus tenderness to percussion, no rhinorrhea, mucous membranes are moist and pink without lesions or exudate. NECK/THYROID: neck supple, no JVD, no carotid bruit, no thyromegaly, trachea midline. LYMPH NODES: no cervical or supraclavicular lymphadenopathy. SKIN: [place], warm and dry, no visible lesions, rashes, ulcerations or petechiae. HEART: regular rate and rhythm, S1-S2, no murmur, no rubs or gallops, brisk capillary refill, 2+ dorsalis pedis pulses, no edema LUNGS: clear to auscultation bilaterally, no coarseness crackles or wheezing, no cough present CHEST: Symmetrical movement, no accessory muscle use, good tidal volume. ABDOMEN: Soft, no distention, epigastric abdominal tenderness, no guarding or peritoneal signs, no organomegaly, no flank or suprapubic tenderness, active bowel tones. BACK: Normal curvature, nontender to palpation, no CVA tenderness on percussion EXTREMITIES: moves all extremities, strength is 5/5 and symmetrical, no deformities or joint effusions. NEUROLOGIC: AAO x4, no focal neurologic deficits, cranial nerves II-XII grossly intact, sensation intact to light touch, hearing grossly normal to speech. PSYCH: Cooperative, linear thought process, good eye contact, appropriate with stable behavior Objective Labs Result Diagrams: 09/29/19 13:34 09/29/19 13:34 Labs: Laboratory Results - last 24 hr 09/29/19 09/29/19 09/29/19 13:34 13:34 13:34 WBC 6.8 RBC 4.11 Hgb 13.1 Hct 38.5 MCV 93.6 MCH 32.0 MCHC 34.1 RDW 15.1 H Plt Count 214 Neut % (Auto) 81.1 H Lymph % (Auto) 9.3 L [place] % (Auto) 8.7 Eos % (Auto) 0.5 L Baso % (Auto) 0.4 Neut # (Auto) 5500 Lymph # (Auto) 600 L [place] # (Auto) 600 Eos # (Auto) 0 Baso # (Auto) 0 Sodium 138 Potassium 4.1 Chloride 100 Carbon Dioxide 26 BUN 10 Creatinine 0.60 Estimated GFR > 60.0 BUN/Creatinine Ratio 16.7 Glucose 91 Calcium 9.7 Magnesium Total Bilirubin 1.2 AST 281 H ALT 216 H Alkaline Phosphatase 104 Total Protein 8.0 Albumin 5.0 Globulin 3.0 Albumin/Globulin Ratio 1.7 Triglycerides 103 Cholesterol 199 LDL Cholesterol, Calc 111 H HDL Cholesterol 67 H Lipase 3395 H Urine Ictotest Urine RBC Urine WBC Ur Squamous Epith Cells Ur Transition Epith Cell Urine Bacteria Urine Mucus Ur Culture Indicated? 09/29/19 09/29/19 13:34 17:42 WBC RBC Hgb Hct MCV MCH MCHC RDW Plt Count Neut % (Auto) Lymph % (Auto) [place] % (Auto) Eos % (Auto) Baso % (Auto) Neut # (Auto) Lymph # (Auto) [place] # (Auto) Eos # (Auto) Baso # (Auto) Sodium Potassium Chloride Carbon Dioxide BUN Creatinine Estimated GFR BUN/Creatinine Ratio Glucose Calcium Magnesium 1.8 Total Bilirubin AST ALT Alkaline Phosphatase Total Protein Albumin Globulin Albumin/Globulin Ratio Triglycerides Cholesterol LDL Cholesterol, Calc HDL Cholesterol Lipase Urine Ictotest Negative Urine RBC 1-5/hpf D Urine WBC 5-10/hpf H Ur Squamous Epith Cells 1-5 /hpf Ur Transition Epith Cell 1-5/hpf Urine Bacteria Few (2-10) H Urine Mucus 2+ H Ur Culture Indicated? Specimen cultured Discharge Plan Discharge Plan Discharge Problem: Pancreatitis Patient Disposition: Home Discharge comment: You've been evaluated and additionally treated for alcoholic pancreatitis. Condition is not fully resolved and dietary restrictions as discussed must be adhered to prevent relapse as well as discontinuing alcohol consumption. Return to the hospital for increased pain, nausea or vomiting or any other concerning symptoms. You are being prescribed Librium 25 mg to be taken 3 times daily that will reduce the risk of withdrawal symptoms. As discussed, should you develop tremors confusion fevers, disorientation or seizures you will need to be evaluated in hospital emergently. Discharge orders & Medications Prescriptions: New multivitamin [Tab-A-Terrie] Tablet 1 tab PO DAILY Qty: 30 RF: 0 chlordiazepoxide HCl 25 mg Capsule 25 mg PO TID 7 Days Qty: 21 RF: 0 folic acid 1 mg Tablet 1 mg PO DAILY Qty: 30 RF: 0 thiamine HCl (vitamin B1) [Vitamin B-1] 100 mg Tablet 100 mg PO DAILY 30 Days Qty: 30 RF: 0 Diet/Activity/Treatments Diet: Clear Liquid Diet comment: Water tonight, clear liquids tomorrow, then advace as tollerated Activity: No restrictions Discharge Data Attending Provider: Kranthi Mccabe Admit Date/Time: 09/29/19 18:40
--- NOTE | 2019-09-29 22:36 | PC.NURSE ---
Pt fully dressed sitting upright on bed in room 226. S.O. @ bedside. Hospitalist Lele WALTON, has spoken with pt and discharge orders written. Pt has prescription in possession for librium as well as other meds transmitted electronically per Lele WALTON. Pt and pt's S.O. provided with written and verbal discharge instructions. Questions answered as appropriate. Heplock left ac removed intact. Pt left hospital accompanied by S.O. (with all personal belongings accounted for) ambulatory with this aligner typewriter as escort in stable condition to private vehicle with S.O. as gas truck driver.
== END 2019-09-29 22:35 | disposition home or self-care (01) ==
LOC: ED 18:21 → AC 18:41
PROVIDERS: Nurse Practitioner Adult Health; Admitting Provider Internal Medicine; Emergency Provider Emergency Medicine; Visit Provider Internal Medicine
DX: K85.20 Alcohol induced acute pancreatitis without necrosis or infection (principal); R10.13 Epigastric pain; F17.210 Nicotine dependence, cigarettes, uncomplicated; F10.20 Alcohol dependence, uncomplicated; F31.9 Bipolar disorder, unspecified; K70.0 Alcoholic fatty liver
CPT/HCPCS: 36415; 76700; 80053; 80061; 81003; 81015; 81025; 83690; 83735; 85025; 87086; 96361; 96374; 99284; G0378; J1885